=== PATIENT | female | born 1980 | race Caucasian/White ===

== ENCOUNTER 2021-01-30 07:05 | Outpatient (CLI) | payer BC ==
[~2021-01-30] VITALS: Ht 175.3 cm; Wt 67.8 kg
[2021-01-30] MEDS ORDERED: FOLIC ACID 11 MG/TA1 PO (08:27)
[2021-01-30] MEDS ORDERED: MELATONIN5 M1 SL (08:28)
[2021-01-30] MEDS ORDERED: FERROUS SU325 MG/TAB PO (08:28)
[2021-01-30 08:29] VITALS: BP 106/66; PULSE 57; TEMP 97.6
[2021-01-30 12:06] VITALS: BP 107/63; PULSE 85
--- NOTE | 2021-01-30 12:10 | NUR ---
DC instructions reviewed with pt and . They express understanding. Pt is able to ambulate with steady gait and no complaints. They are escorted to elevator with belongings.
== END 2021-01-30 12:09 | disposition home or self-care (01) ==
LOC: COL.CAR 07:05
DX: R55 Syncope and collapse (principal); D64.9 Anemia, unspecified; Z20.822 Contact with and (suspected) exposure to COVID-19

== ENCOUNTER → 2021-03-25 | Outpatient (CLI) | payer BC ==
[~2021-03-25] MED LIST: FERROUS SU325 MG/TAB PO; FOLIC ACID 11 MG/TA1 PO; MELATONIN5 M1 SL
== END ==
LOC: COL.CARD 09:28
DX: R55 Syncope and collapse (principal)